=== PATIENT | female | born 1990 | race Caucasian/White ===

== ENCOUNTER 2021-10-13 08:35 | Inpatient (IN) ==
[2021-10-13] MEDS ORDERED: Lactated Ringers 1000 ml BAG 1,000 ML IV ONE (08:46)
[2021-10-13] MEDS ORDERED: Buffered Lidocaine 1% SYRIN 1 ml INTRADERM ONE (08:46)
[2021-10-13] MEDS ORDERED: Oxytocin 10 UNITS/ML 1 ML VIAL IM ONE (08:54)
[2021-10-13] MEDS ORDERED: Dibucaine 1% OINT 28.35 GM TUBE PR PRN (08:54)
[2021-10-13] MEDS ORDERED: Witch Hazel PAD JAR TOPICAL PRN (08:54)
[2021-10-13] MEDS ORDERED: Lactated Ringers 1000 ml BAG 1,000 ML IV SCH ×2 (09:00)
[2021-10-13] MEDS ORDERED: Lidocaine 1% w EPI 1:200,000 SDV 30 ML VIAL ONE (11:47)
[2021-10-14 05:00] VITALS: BP 116/81
[2021-10-14 06:51] LABS: ABS Eosinophils 0.1 10^3/ul (0-0.6); ABS Lymphocytes 2.9 10^3/ul (1.0-4.8); ABS Monocytes 0.7 10^3/ul (0-0.8); ABS Neutrophils 9.2 10^3/ul (1.5-7.7); Eosinophil % 0.6 %; Hematocrit 34 % (35-47); Hemoglobin 11.8 g/dL (12.0-16.0); Lymphocyte % 22.5 %; Mean Corpuscular HGB Conc 35 g/dL (31-36); Mean Corpuscular Hemoglobin 31 pg (27-31); Mean Corpuscular Volume 90 fL (80-97); Mean Platelet Volume 8.3 fL (7.4-10.4); Platelet Count 246 10^3/uL (150-450); Red Cell Distribution Width 14 % (10-15)
== END 2021-10-14 11:20 | disposition home or self-care (01) | DRG 560 ==
LOC: MCHOB 08:36
PROVIDERS: ADMIT Midwife; ATTEND Midwife

== ENCOUNTER 2024-08-21 09:54 | Inpatient (IN) ==
[2024-08-21] MEDS ORDERED: Lidocaine 1% VIAL 10 MG/ML 30 ML VIAL INJ PRN (11:10)
[2024-08-21] MEDS ORDERED: Nalbuphine 10 MG/ML 1 ML VIAL IV PRN (11:10)
[2024-08-21 11:54] LABS: ABS Basophils 0.1 10^3/uL (0.0-0.1); ABS Lymphocytes 2.2 10^3/uL (1.0-4.8); ABS Monocytes 0.5 10^3/uL (0.0-0.9); ABS Neutrophils 8.4 10^3/uL (1.5-7.6); Eosinophil % 0.1 %; Hematocrit 37.3 % (35-45); Hemoglobin 12.6 g/dL (11.5-14.3); Lymphocyte % 19.7 %; Mean Corpuscular Hemoglobin 29.7 pg (27-33); Mean Corpuscular Hgb Conc 33.7 g/dL (31-36); Mean Corpuscular Volume 88.1 fL (80-97); Mean Platelet Volume 8.3 fL (7.5-11.2); Platelet Count 273 10^3/uL (150-450); Red Blood Count 4.23 10^6/uL (3.63-4.92); White Blood Count 11.2 10^3/uL (3.8-11.8)
[2024-08-21 12:15] LABS: Urine Benzodiazepine Screen None Detected (None Detect); Urine Cannabinoids Screen None Detected (None Detect); Urine Opiates Screen None Detected (None Detect)
[2024-08-21] MEDS: Lidocaine 2% JELLY 6 ML Topical TOPICAL ONE ×2 (14:45→17:15)
[2024-08-21] MEDS: Oxytocin 10 UNITS/ML 1 ML VIAL IM ONE (15:04)
[2024-08-21] MEDS ORDERED: Glycerin ADULT 2.4 gm SUPP PR PRN (15:13)
[2024-08-21] MEDS: Witch Hazel PAD JAR TOPICAL PRN (15:28)
[2024-08-21] MEDS: Dibucaine 1% OINT 28.35 GM TUBE PR PRN (15:28)
[2024-08-21] MEDS ORDERED: Lactated Ringers 1000 ml BAG 1,000 ML IV SCH (16:00)
[2024-08-21] MEDS: Lactated Ringers 1000 ml BAG 1,000 ML IV ONE (17:15)
[2024-08-21] MEDS: Buffered Lidocaine 1% SYRIN 1 ml INTRADERM ONE (17:15)
[2024-08-21] MEDS: Methylergonovine 0.2 mg AMPULE 1 ml AMP ONE (17:15)
[2024-08-21] MEDS: Lactated Ringers 1000 ml BAG 1,000 ML IV SCH (17:15)
[2024-08-21] MEDS: Oxytocin in NS 30,000 MILLI.UNIT/500 ML BAG IV SCH (17:23)
[2024-08-22 07:16] LABS: ABS Eosinophils 0.1 10^3/uL (0.0-0.5); ABS Lymphocytes 3.8 10^3/uL (1.0-4.8); ABS Monocytes 0.9 10^3/uL (0.0-0.9); ABS Neutrophils 10.2 10^3/uL (1.5-7.6); ABS Nucleated RBC 0.01 10^3/ul; Eosinophil % 0.4 %; Hematocrit 35.3 % (35-45); Hemoglobin 12.2 g/dL (11.5-14.3); Lymphocyte % 25.5 %; Mean Corpuscular Hemoglobin 30.7 pg (27-33); Mean Corpuscular Hgb Conc 34.6 g/dL (31-36); Mean Corpuscular Volume 88.8 fL (80-97); Mean Platelet Volume 8.2 fL (7.5-11.2); Nucleated Red Blood Cells % 0.1 %/100WBC (0.0-0.8); Platelet Count 270 10^3/uL (150-450); Red Blood Count 3.97 10^6/uL (3.63-4.92); Red Cell Distribution Width 13.6 % (12-17); White Blood Count 15.1 10^3/uL (3.8-11.8)
[2024-08-22 12:39] VITALS: BP 111/66
== END 2024-08-22 16:25 | disposition home or self-care (01) | DRG 560 ==
LOC: MCHOBOUT 09:54 → MCHOB 11:03
PROVIDERS: ADMIT Advanced Practice Midwife; ATTEND Advanced Practice Midwife